=== PATIENT | male | born 1940 | race Caucasian/White ===

== ENCOUNTER → 2016-08-21 | Outpatient (CLI) | payer MEDICARE, OTHER ==
[~2016-08-21] MED LIST: ASPI-611 PO; DOXA2TAB46 PO; OMEP20CA81 PO; SIMV40TA82 PO; TRAM50TA4 PO; [UNRECOGNIZED DRUG - CODE] PO; [UNRECOGNIZED DRUG - CODE] PO
--- NOTE | 2016-08-22 09:08 | DI ---
Indication: ITS.REASON: M52.4, M47.22 PROCEDURE: MRI CERVICAL SPINE W/O CONTRAS: Encounter: Initial Comparison: None Technique: Multiplanar multisequence MR imaging of the cervical spine was performed without contrast. Findings: Alignment of the cervical spine is straightened with loss of the normal lordosis. No acute fracture identified. Bone marrow signal intensity is normal. The cervical and visualized upper thoracic spinal cord signal intensity is normal. The paraspinal soft tissues are unremarkable. Segmental analysis: C2-C3: Normal C3-C4: Mild degenerative facet and uncovertebral changes on the left causing mild neural foraminal narrowing. No central canal or right foraminal stenosis. C4-C5: Normal C5-C6: Minimal central disk bulge without central canal or neural foraminal stenosis. C6-C7: Degenerative facet and uncovertebral changes on the left causing mild neural foraminal stenosis. No central canal or right neural foraminal narrowing. 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 .
== END ==
LOC: IMA 19:19
PROVIDERS: ATTEND Family Medicine Sports Medicine
DX: M50.322 Other cervical disc degeneration at C5-C6 level (principal); M47.22 Other spondylosis with radiculopathy, cervical region